=== PATIENT | female | born 1945 | race Caucasian/White ===

== ENCOUNTER 2023-05-10 08:16 | Day surgery (SDC) | payer MEDICARE ==
[2023-05-10] MEDS ORDERED: Depo-Medrol 40 MG/ML IM ONE (08:17)
[2023-05-10] MEDS ORDERED: Sodium Chloride 0.9(Preservative Free) 10 ML IJ ONE (08:17)
[2023-05-10] MEDS ORDERED: DIPRIVAN 200 MG/20 ML IV ONE (10:04)
[2023-05-10] MEDS ORDERED: Lactated Ringers 1,000 ML IV ONE (11:12)
--- NOTE | 2023-05-10 11:28 | XRAY ---
Indication: Caudal ROMA. Intraoperative fluoroscopy provided for 16 seconds. 2 digital spot image submitted for interpretation demonstrates caudal needle tip projecting mid sacrum. Small amount of contrast injected for needle tip placement. Correlate with intraoperative findings/report.
--- NOTE | 2023-05-10 12:13 | XRAY ---
16 seconds of fluoroscopy was used in surgery for a caudal ROMA.
== END 2023-05-10 10:28 | disposition home or self-care (01) ==
LOC: SDC-PAIN 08:16
PROVIDERS: ATTEND Psychiatry & Neurology Pain Medicine
DX: M54.16 Radiculopathy, lumbar region (principal); Z79.899 Other long term (current) drug therapy
CPT/HCPCS: 62323; 72220; 77003; J1030; J2704; Q9966

== ENCOUNTER 2023-09-07 10:44 | Emergency (ER) | payer MEDICARE ==
[2023-09-07 10:52] VITALS: TEMP 97.1
--- NOTE | 2023-09-07 11:00 | ERPHSYRPT ---
- History of Present Illness Time Seen by Provider: 09/07/23 10:55 Source: patient, family Exam Limitations: no limitations Patient Subjective Stated Complaint: PT states "I have been having trouble breathing since the end of june but it got really bad last monday." Triage Nursing Assessment: PT presented alert and oriented X 3, skin wpd. PT ambualtes with an upright steady gait, able to speak in clear ufll setnences. PT coughing, able to speak three to four word sentencse. PT Physician History: This is an obese 78-year-old white female patient Dr. Camargo who has had worsening shortness of breath since the June 2023 but it got much worse yesterday. There is an associated cough as well. Patient does have a history of COPD, gastroesophageal reflux disease, depression and degenerative disc disease. She denies abdominal pain. She denies chest pain. She has not had a fever. The cough is productive with yellowish sputum Timing/Duration: week(s) (Over 8 weeks), worse Activities at Onset: none Severity of Dyspnea-Max: mild (To moderate) Severity of Dyspnea-Current: mild (To moderate) Possible Cause: occasional episodes Modifying Factors: Improves With: coughing Associated Symptoms: cough, wheezing, No chest pain/discomfort Allergies/Adverse Reactions: magnesium [From Cardia] Adverse Reaction (Severe, Verified 09/07/23 10:53) tachycardia potassium chloride [From Cardia] Adverse Reaction (Severe, Verified 09/07/23 10:53) tachycardia sodium chloride [From Cardia] Adverse Reaction (Severe, Verified 09/07/23 10:53) tachycardia Sulfa (Sulfonamide Antibiotics) Adverse Reaction (Intermediate, Verified 09/07/23 10:53) lightheaded Home Medications: Fluticasone/Umeclidin/Vilanter [Trelegy Ellipta 100-62.5-25] 1 unit PO DAILY 09/07/23 [History] PANTOPRAZOLE 40 mg Tablet [Protonix 40MG Tablet] 40 mg PO QAM 09/07/23 [History] Sertraline HCl [Zoloft] 25 mg PO DAILY 09/07/23 [History] Hx Tetanus, Diphtheria Vaccination/Date Given: No Hx Influenza Vaccination/Date Given: No Hx Pneumococcal Vaccination/Date Given: Yes Immunizations Up to Date: No Travel Risk - International Travel Have you traveled outside of the country in past 3 weeks: No - Coronavirus Screening Are you exhibiting any of the following symptoms?: Yes Symptoms: Cough: New Onset, Shortness of Breath, Vomiting/Diarrhea - Vaccine Status Have you recieved a Covid-19 vaccination: Yes Auto Damage Adjuster: Unknown - Vaccination Dates Dates if Unknown: 2021 - Review of Systems Constitutional: No Symptoms Eyes: No Symptoms Ears, Nose, & Throat: No Symptoms Respiratory: Cough, Dyspnea Cardiac: No Symptoms Abdominal/Gastrointestinal: No Symptoms Genitourinary Symptoms: No Symptoms Musculoskeletal: No Symptoms Skin: No Symptoms Neurological: No Symptoms Psychological: No Symptoms Endocrine: No Symptoms Hematologic/Lymphatic: No Symptoms Immunological/Allergic: No Symptoms All Other Systems: Reviewed and Negative - Past Medical History Neurological History: No Pertinent History Cardiac History: No Pertinent History Respiratory History: COPD Endocrine Medical History: No Pertinent History Musculoskeletal History: Degenerative Disk Disease GI Medical History: No Pertinent History History: No Pertinent History Psycho-Social History: Depression Other Medical History: GERD, HX BAÑUELOS'S CYST RIGHT KNEE. SX HX: CHOLECYSTECTOMY AND HYSTERECTOMY - Past Surgical History Past Surgical History: Yes Other Surgical History: roberto. hysterectomy - Social History Smoking Status: Former smoker Exposure to second hand smoke: Yes Drug Use: none Patient Lives Alone: No - Nursing Vital Signs Nursing Vital Signs: Initial Vital Signs Temperature 97.1 F 09/07/23 10:45 Pulse Rate 91 H 09/07/23 10:45 Respiratory Rate 09/07/23 10:45 Blood Pressure 165/88 09/07/23 10:45 O2 Sat by Pulse Oximetry 92 L 09/07/23 10:45 Pain Scale Pain Intensity 0 - Physical Exam General Appearance: mild distress, alert, anxiety, obese Eye Exam: PERRL/EOMI, eyes nml inspection Ears, Nose, Throat Exam: hearing grossly normal, normal ENT inspection, normal pharynx Neck Exam: normal inspection, non-tender, supple, full range of motion Respiratory Exam: normal breath sounds, lungs clear, airway intact, No chest tenderness, No respiratory distress Cardiovascular/Chest Exam: normal heart sounds, regular rate/rhythm Abdominal/Gastrointestinal Exam: soft, normal bowel sounds, No tenderness Rectal Exam: not done Extremity Exam: non-tender, normal range of motion, normal inspection, no calf tenderness, no pedal edema, pelvis stable Neurologic Exam: alert, oriented x 3, cooperative, ventilator specialist II-XII nml as tested, normal mood/affect, nml cerebellar function, nml station & gait, sensation nml Skin Exam: normal color, warm, dry Lymphatic Exam: No adenopathy SpO2 Interpretation: borderline oxygenation SpO2: 93 O2 Delivery: Room Air - Course Nursing assessment & vital signs reviewed: Yes EKG Interpreted by Me: RATE (74), Sinus Rhythm, NORMAL AXIS, NORMAL INTERVALS, NORMAL QRS, NORMAL ST-T, Other (No acute ischemia on today's twelve-lead EKG) Ordered Tests: Active Orders 24 hr Category Date Time Status EKG-ER Only STAT Care 09/07/23 11:00 Active IV Insertion STAT Care 09/07/23 11:00 Active Pulse Oximetry (ED) STAT Care 09/07/23 11:00 Active CHEST 1 VIEW (PORTABLE) Stat Exams 09/07/23 11:01 Completed CHEST WITH CONTRAST [CT] Stat Exams 09/07/23 12:40 Completed BLOOD CULTURE Stat Lab 09/07/23 11:34 Received CBC W DIFF Stat Lab 09/07/23 11:12 Completed CMP Stat Lab 09/07/23 11:12 Completed D-DIMER QUANTITATIVE Stat Lab 09/07/23 11:12 Completed Lactic Acid Stat Lab 09/07/23 11:00 Completed MAGNESIUM Stat Lab 09/07/23 11:12 Completed NT PRO BNPII Stat Lab 09/07/23 11:12 Completed PROTIME WITH INR Stat Lab 09/07/23 11:12 Completed TROPONIN Q4H Lab 09/07/23 11:12 Completed TROPONIN Q4H Lab 09/07/23 15:00 Ordered TROPONIN Q4H Lab 09/07/23 19:00 Ordered Respiratory Therapy Assessment DAILY RT 09/07/23 11:10 Active Medication Summary Discontinued Medications Generic Name Dose Route Start Last Admin Trade Name Freq PRN Reason Stop Dose Admin Albuterol Sulfate 2.5 mg 09/07/23 11:00 09/07/23 11:10 Albuterol Sulfate 2.5 Mg/3 Ml Neb IH 09/07/23 11:01 2.5 mg STAT ONE Administration Albuterol Sulfate Confirm 09/07/23 11:06 Albuterol Sulfate 2.5 Mg/3 Ml Neb Administered 09/07/23 11:07 Dose 2.5 mg IH .STK-MED ONE Methylprednisolone Sodium 0 mg 09/07/23 11:00 09/07/23 11:07 Succinate 125 mg/ Sterile IV 09/07/23 11:01 125 mg Water 2 ml STAT ONE Administration Methylprednisolone Sodium Succinate Confirm 09/07/23 11:06 Methylprednis Sod Succ 125 Mg/2 Ml Vial Administered 09/07/23 11:07 Dose 125 mg .ROUTE .STK-MED ONE Sterile Water Confirm 09/07/23 11:06 Water For Injection,Sterile 10 Ml Vial Administered 09/07/23 11:07 Dose 10 ml IJ .STK-MED ONE Lab/Rad Data: Laboratory Result Diagrams 09/07/23 11:12 09/07/23 11:12 Laboratory Results 09/07/23 09/07/23 09/07/23 Range/Units 11:40 11:12 11:12 WBC (4.0-10.5) x10^3/uL RBC (4.1-5.4) x10^6/uL Hgb (12.0-16.0) g/dL Hct (35-47) % MCV (78-100) fL MCH (26-32) pg MCHC (32-36) g/dL RDW (11.5-14.0) % Plt Count (150-450) x10^3/uL MPV (7.5-11.0) fL Gran % (36.0-66.0) % Immature Gran % (Auto) (0.00-0.4) % Nucleat RBC Rel Count (0.00-0.1) % Eos # (Auto) (0-0.5) x10^3/uL Immature Gran # (Auto) (0.00-0.03) x10^3u/L Absolute Lymphs (auto) (1.0-4.6) x10^3/uL Absolute Monos (auto) (0.0-1.3) x10^3/uL Absolute Nucleated RBC (0.00-0.01) x10^3u/L Lymphocytes % (24.0-44.0) % Monocytes % (0.0-12.0) % Eosinophils % (0.00-5.0) % Basophils % (0.0-0.4) % Absolute Granulocytes (1.4-6.9) x10^3/uL Basophils # (0-0.4) x10^3/uL PT 10.3 (9.4-12.5) SECONDS INR 0.94 (0.8-3.0) D-Dimer 1.12 H* (0.0-0.50) mg/L Sodium 143 (137-145) mmol/L Potassium 3.5 (3.5-5.1) mmol/L Chloride 107 (98-107) mmol/L Carbon Dioxide 27 (22-30) mmol/L Anion Gap 12.6 (5-15) MEQ/L BUN 25 H (7-17) mg/dL Creatinine 0.81 (0.52-1.04) mg/dL Estimated GFR 75.2 ML/MIN Glucose 105 (74-106) mg/dL Lactic Acid (0.4-2.0) Calcium 8.6 (8.4-10.2) mg/dL Magnesium 2.0 (1.6-2.3) mg/dL Total Bilirubin 0.70 (0.2-1.3) mg/dL AST 25 (14-36) U/L ALT 20 (0-35) U/L Alkaline Phosphatase 87 (38-126) U/L Troponin I < 0.012 (0.000-0.034) ng/mL NT-Pro-B Natriuret Pep 363 (<300) pg/mL Serum Total Protein 6.9 (6.3-8.2) g/dL Albumin 4.0 (3.5-5.0) g/dL Influenza Type A Ag POSITIVE A (NEGATIVE) Influenza Type B Ag NEGATIVE (NEGATIVE) RSV (PCR) NEGATIVE (NEGATIVE) SARS-CoV-2 (PCR) NEGATIVE (NEGATIVE) 09/07/23 09/07/23 Range/Units 11:12 11:00 WBC 6.4 (4.0-10.5) x10^3/uL RBC 4.61 (4.1-5.4) x10^6/uL Hgb 13.8 (12.0-16.0) g/dL Hct 43.3 (35-47) % MCV 93.9 (78-100) fL MCH 29.9 (26-32) pg MCHC 31.9 L (32-36) g/dL RDW 12.4 (11.5-14.0) % Plt Count 246 (150-450) x10^3/uL MPV 10.2 (7.5-11.0) fL Gran % 44.7 (36.0-66.0) % Immature Gran % (Auto) 0.2 (0.00-0.4) % Nucleat RBC Rel Count 0.0 (0.00-0.1) % Eos # (Auto) 0.05 (0-0.5) x10^3/uL Immature Gran # (Auto) 0.01 (0.00-0.03) x10^3u/L Absolute Lymphs (auto) 2.83 (1.0-4.6) x10^3/uL Absolute Monos (auto) 0.58 (0.0-1.3) x10^3/uL Absolute Nucleated RBC 0.00 (0.00-0.01) x10^3u/L Lymphocytes % 44.4 H (24.0-44.0) % Monocytes % 9.1 (0.0-12.0) % Eosinophils % 0.8 (0.00-5.0) % Basophils % 0.8 (0.0-0.4) % Absolute Granulocytes 2.85 (1.4-6.9) x10^3/uL Basophils # 0.05 (0-0.4) x10^3/uL PT (9.4-12.5) SECONDS INR (0.8-3.0) D-Dimer (0.0-0.50) mg/L Sodium (137-145) mmol/L Potassium (3.5-5.1) mmol/L Chloride (98-107) mmol/L Carbon Dioxide (22-30) mmol/L Anion Gap (5-15) MEQ/L BUN (7-17) mg/dL Creatinine (0.52-1.04) mg/dL Estimated GFR ML/MIN Glucose (74-106) mg/dL Lactic Acid 1.4 (0.4-2.0) Calcium (8.4-10.2) mg/dL Magnesium (1.6-2.3) mg/dL Total Bilirubin (0.2-1.3) mg/dL AST (14-36) U/L ALT (0-35) U/L Alkaline Phosphatase (38-126) U/L Troponin I (0.000-0.034) ng/mL NT-Pro-B Natriuret Pep (<300) pg/mL Serum Total Protein (6.3-8.2) g/dL Albumin (3.5-5.0) g/dL Influenza Type A Ag (NEGATIVE) Influenza Type B Ag (NEGATIVE) RSV (PCR) (NEGATIVE) SARS-CoV-2 (PCR) (NEGATIVE) - Progress Progress: improved, re-examined Air Movement: good Progress Note: 09/07/23 11:44 This patient's medical issue is 1 of moderate complexity. Level of complexity and the workup performed is based on review of the patient's past medical history, review of the patient's medication list, review the patient drug allergy list, history present illness and physical findings on examination. The workup in this patient includes placement of intravenous line, respiratory therapy consultation evaluation and treatment with nebulizer of albuterol, CBC, CMP, twelve-lead EKG, D-dimer, troponin level, BNP, chest x-ray, flu swabs and infusion of 125 mg intravenous Solu-Medrol. 09/07/23 12:03 Chest x-ray interpreted by the radiologist. I reviewed the impression. The impression states there is demonstration left base opacity either infiltrate or atelectasis or prominent epicardial fat. 09/07/23 14:17 I interpreted the patient's laboratory data results. The patient had an elevated D-dimer and we did order a CT scan of the chest with contrast. Patient also has a positive influenza A result. CT scan of the chest with contrast shows no pulmonary embolus. There is no acute cardiopulmonary processes. There are chronic findings including pulmonary emphysema. Clinically, the patient has had shortness of breath for 2 months but worsened yesterday. Therefore, I will provide her with Tamiflu here in the emergency department and then I will send a prescription for Tamiflu, prednisone and cefdinir to her pharmacy. Blood Culture(s) Obtained: Yes Counseled pt/family regarding: lab results, diagnosis, need for follow-up, rad results Medical Desision Making - Independent Historian Additional History obtained from: Spouse - Diagnostic Testing Diagnostic test were ordered, analyzed, and reviewed by me: Yes Radiological Interpretation: Reviewed by me, Teleradiologist Report - Risk of complications The pt has a mod risk of morbidity or mortality based on: Need for prescription drug management - Departure Departure Disposition: Home Clinical Impression: COPD exacerbation, Influenza A H1N1 infection Condition: Stable Critical Care Time: No Referrals: DALILA CAMARGO MD [Primary Care Provider] - Follow up/PCP as directed Instructions: Chronic Obstructive Pulmonary Disease Additional Instructions: Drink plenty of fluids. Avoid exposure to any type of smoke. Take your medications as prescribed. Follow-up with your primary care provider by phone tomorrow, 09/08/2023, to make arranges for follow-up appointment for further evaluation management. Prescriptions: Cefdinir 300 mg PO BID #14 cap Prednisone 10 mg [Deltasone 10 mg] 10 mg PO TID #12 tablet Oseltamivir 75 mg [Tamiflu 75MG Capsule] 75 mg PO BID #10 cap Albuterol 8 gm Mdi Hfa [Ventolin Hfa MDI] 8 gm IH Q4H #1 unit
[2023-09-07] MEDS ORDERED: Sterile H2O 10 ml IJ ONE (11:06)
[2023-09-07] MEDS ORDERED: PROVENTIL 2.5 MG/3 ML NEB IH ONE (11:06)
[2023-09-07] MEDS ORDERED: solu-MEDROL ONE (11:06)
[2023-09-07] MEDS: solu-MEDROL 125 MG, Sterile H2O 10 ml 2 ML IV ONE (11:07)
[2023-09-07] MEDS: PROVENTIL 2.5 MG/3 ML NEB IH ONE (11:10)
[2023-09-07 11:41] LABS: Absolute Neutrophil Ct (ANC) 2.85 x10^3/uL (1.4-6.9); BASOPHIL % 0.8 % (0.0-0.4); Basophil (Absolute #) 0.05 x10^3/uL (0-0.4); Eosinophil % 0.8 % (0.00-5.0); Eosinophil (Absolute #) 0.05 x10^3/uL (0-0.5); Hematocrit 43.3 % (35-47); Hemoglobin 13.8 g/dL (12.0-16.0); IMMATURE GRAN # 0.01 x10^3u/L (0.00-0.03); IMMATURE GRAN % 0.2 % (0.00-0.4); Lymphocyte (Absolute #) 2.83 x10^3/uL (1.0-4.6); Lymphocytes % 44.4 % (24.0-44.0); Mean Cell Volume 93.9 fL (78-100); Mean Corpuscular Hemoglobin 29.9 pg (26-32); Mean Corpuscular Hgb Concent. 31.9 g/dL (32-36); Mean Platelet Volume 10.2 fL (7.5-11.0); Monocyte (Absolute #) 0.58 x10^3/uL (0.0-1.3); Monocytes % 9.1 % (0.0-12.0); Neutrophil % 44.7 % (36.0-66.0); Platelet Count 246 x10^3/uL (150-450); Red Blood Count 4.61 x10^6/uL (4.1-5.4); Red Cell Distribution Width 12.4 % (11.5-14.0); White Blood Count 6.4 x10^3/uL (4.0-10.5)
[2023-09-07 11:42] VITALS: O2SAT 93
--- NOTE | 2023-09-07 11:50 | XRAY ---
Indication: Short of breath. Comparison: None Portable apical lordotic chest demonstrates left base opacity silhouetting hemidiaphragm and left heart border either infiltrate/atelectasis versus prominent epicardiac fat. Remaining heart and lungs unremarkable. Bony thorax intact with osteopenia and mild degenerative changes.
[2023-09-07 12:10] LABS: ALKALINE PHOSPHATASE 87 U/L (38-126); ANION GAP 12.6 MEQ/L (5-15); BLOOD UREA NITROGEN 25 mg/dL (7-17); CHLORIDE 107 mmol/L (98-107); Calcium 8.6 mg/dL (8.4-10.2); Carbon Dioxide 27 mmol/L (22-30); Creatinine 1 0.81 mg/dL (0.52-1.04); EST GLOMERULAR FILTRATION RATE 75.2 ML/MIN; Glucose 105 mg/dL (74-106); NT PRO BNPII 363 pg/mL (<300); Potassium 3.5 mmol/L (3.5-5.1); SGOT/AST 25 U/L (14-36); SGPT/ALT 20 U/L (0-35); SODIUM 143 mmol/L (137-145); TROPONIN < 0.012 ng/mL (0.000-0.034); Total Protein 6.9 g/dL (6.3-8.2)
[2023-09-07 12:14] LABS: INR 0.94 (0.8-3.0); PROTIME 10.3 SECONDS (9.4-12.5)
[2023-09-07 12:17] LABS: D-DIMER QUANTITATIVE 1.12 mg/L (0.0-0.50)
[2023-09-07 12:18] LABS: INFLUENZA B NEGATIVE (NEGATIVE); RESPIRATORY SYNCTIAL VIRUS NEGATIVE (NEGATIVE); SARS-CoV-2 Xpert Express NEGATIVE (NEGATIVE)
[2023-09-07 12:24] LABS: INFLUENZA A POSITIVE (NEGATIVE)
[2023-09-07 12:55] VITALS: BP 149/61; PULSE 71; RESP 16
--- NOTE | 2023-09-07 13:23 | XRAY ---
Indication: Short of breath. Elevated d-dimer. Multiple contiguous axial images obtained through the chest using 100 cc Isovue 370 contrast and PE protocol. Comparison: None Good opacification of the pulmonary arteries to include the lobar and segmental branches. No pulmonary embolus. Heart not enlarged. Aorta is normal in course and caliber. Tiny mediastinal and bilateral hilar calcified nodes. No pathologic mediastinal/hilar lymphadenopathy. Small hiatal hernia. Lungs demonstrate moderate diffuse pulmonary emphysema and a few tiny bilateral calcified granulomas. No suspicious pulmonary mass/nodule, infiltrate, effusion, or pneumothorax. Bony thorax intact with osteopenia and minimal degenerative changes throughout the spine. Limited upper abdomen demonstrate fatty liver and 2 small right lobe [id number] hepatic cysts. Impression: 1. Negative pulmonary embolus. No acute cardiopulmonary abnormalities. 2. Chronic findings including pulmonary emphysema, hiatal hernia, chronic bony findings, fatty liver, hepatic cysts, and old granulomatous disease.
[2023-09-07] MEDS ORDERED: Tamiflu 75MG Capsule PO ONE (14:30)
[2023-09-07] MEDS: Tamiflu 75MG Capsule PO ONE (14:32)
== END 2023-09-07 14:52 | disposition home or self-care (01) ==
LOC: ED 10:44
DX: J10.1 Influenza due to other identified influenza virus with other respiratory manifestations (principal); J44.1 Chronic obstructive pulmonary disease with (acute) exacerbation; R06.02 Shortness of breath; R05.9 Cough, unspecified; Z79.52 Long term (current) use of systemic steroids; Z79.899 Other long term (current) drug therapy; Z20.828 Contact with and (suspected) exposure to other viral communicable diseases
CPT/HCPCS: 0241U; 36000; 36415; 71045; 71260; 80053; 83605; 83735; 83880; 84484; 85025; 85379; 85610; 87040; 93005; 94640; 94760; 96374; 99284; J2930; J7609; A9270-GY

== ENCOUNTER 2024-01-03 11:11 | Day surgery (SDC) | payer MEDICARE ==
[2024-01-03] MEDS ORDERED: BUPIVACAINE 0.5% VIAL IJ ONE (11:12)
[2024-01-03] MEDS ORDERED: Depo-Medrol 40 MG/ML IM ONE (11:12)
[2024-01-03] MEDS ORDERED: DIPRIVAN 200 MG/20 ML IV ONE (13:51)
[2024-01-03] MEDS ORDERED: BENADRYL 50 MG/ML ONE (14:01)
[2024-01-03] MEDS ORDERED: Lactated Ringers 1,000 ML IV ONE (14:05)
--- NOTE | 2024-01-03 16:26 | XRAY ---
Indication: Bilateral SI joint injection. Intraoperative fluoroscopy provided for 29 seconds. 2 digital spot images submitted for interpretation demonstrates posterior needle tips projecting over the left and right SI joints. Small amount of contrast injected for needle tip placement. Correlate with intraoperative findings/report.
--- NOTE | 2024-01-03 16:51 | XRAY ---
29 seconds of fluoroscopy was used in surgery for a bilateral sacroiliac joint injection.
== END 2024-01-03 14:17 | disposition home or self-care (01) ==
LOC: SDC-PAIN 11:11
PROVIDERS: ATTEND Psychiatry & Neurology Pain Medicine
DX: M46.1 Sacroiliitis, not elsewhere classified (principal)
CPT/HCPCS: 01992; 27096; 72202; 77002; 99100; G0260; J1010; J1200; J2704; Q9966

== ENCOUNTER 2024-01-31 08:23 | Day surgery (SDC) | payer MEDICARE ==
[2024-01-31] MEDS ORDERED: Sodium Chloride 0.9(Preservative Free) 10 ML IJ ONE (08:24)
[2024-01-31] MEDS ORDERED: Depo-Medrol 40 MG/ML IM ONE (08:24)
[2024-01-31] MEDS ORDERED: DIPRIVAN 200 MG/20 ML IV ONE (09:57)
[2024-01-31] MEDS ORDERED: Lactated Ringers 1,000 ML IV ONE (10:53)
--- NOTE | 2024-01-31 11:00 | XRAY ---
Indication: Caudal ROMA. Intraoperative fluoroscopy provided for 22 seconds. 2 digital spot image submitted for interpretation demonstrates caudal needle tip projecting mid sacrum. Small amount of contrast injected for needle tip placement. Correlate with intraoperative findings/report.
--- NOTE | 2024-01-31 11:45 | XRAY ---
22 seconds of fluoroscopy was used in surgery for a caudal ROMA.
== END 2024-01-31 10:31 ==
LOC: SDC-PAIN 08:23
PROVIDERS: ATTEND Psychiatry & Neurology Pain Medicine
DX: M54.16 Radiculopathy, lumbar region (principal)
CPT/HCPCS: 62323; 72220; 77003; J2704; Q9966

== ENCOUNTER 2024-05-29 14:27 | Day surgery (SDC) | payer MEDICARE ==
[2024-05-29] MEDS ORDERED: Depo-Medrol 40 MG/ML IM ONE (14:28)
[2024-05-29] MEDS ORDERED: Sodium Chloride 0.9(Preservative Free) 10 ML IJ ONE (14:28)
[2024-05-29] MEDS ORDERED: DIPRIVAN 200 MG/20 ML IV ONE (16:11)
--- NOTE | 2024-05-29 18:34 | XRAY ---
Indication: Caudal ROMA. Intraoperative fluoroscopy provided for 10 seconds. 3 digital spot images submitted for interpretation demonstrates caudal needle tip projecting mid sacrum. Small amount of contrast injected for needle tip placement. Correlate with intraoperative findings/report.
--- NOTE | 2024-05-30 09:22 | XRAY ---
10 seconds of fluoroscopy was used in surgery for a caudal ROMA.
== END 2024-05-29 16:45 | disposition home or self-care (01) ==
LOC: SDC-PAIN 14:27
PROVIDERS: ATTEND Psychiatry & Neurology Pain Medicine
DX: M54.16 Radiculopathy, lumbar region (principal)
CPT/HCPCS: 62323; 72220; 77003; J2704; Q9966

== ENCOUNTER 2025-04-09 08:12 | Day surgery (SDC) | payer MEDICARE ==
[2025-04-09] MEDS ORDERED: propofoL IV ONE (10:27)
--- NOTE | 2025-04-09 13:05 | XRAY ---
Indication: Caudal ROMA. Intraoperative fluoroscopy provided for 20 seconds. 2 digital spot image submitted for interpretation demonstrates caudal needle tip projecting mid sacrum. Small amount of contrast injected for needle tip placement. Correlate with intraoperative findings/report.
--- NOTE | 2025-04-09 13:07 | XRAY ---
20 seconds of fluoroscopy were used in surgery for a caudal ROMA.
[2025-04-09] MEDS ORDERED: Lactated Ringers 1,000 ML IV ONE (15:16)
== END 2025-04-09 10:55 | disposition home or self-care (01) ==
LOC: SDC-PAIN 08:12
PROVIDERS: ATTEND Psychiatry & Neurology Pain Medicine
DX: M54.16 Radiculopathy, lumbar region (principal)

== ENCOUNTER 2025-05-21 12:09 | Day surgery (SDC) | payer MEDICARE ==
[2025-05-21] MEDS ORDERED: LIDOCAINE HCL 2% 100 MG/5 ML IJ ONE (12:10)
[2025-05-21] MEDS ORDERED: methylPREDNISolone acetate IM ONE (12:10)
[2025-05-21] MEDS ORDERED: Lactated Ringers 1,000 ML IV ONE (13:58)
[2025-05-21] MEDS ORDERED: propofoL IV ONE (14:00)
[2025-05-21] MEDS ORDERED: MORPHINE SULFATE 4 MG INJ ONE (14:30)
--- NOTE | 2025-05-21 16:35 | XRAY ---
Indication: Bilateral L4-S1 MBB. Intraoperative fluoroscopy provided for 11 seconds. Single digital spot image submitted for interpretation demonstrates posterior needle tips projecting over expected left and right L4-S1 nerve roots. Correlate with intraoperative findings/report.
--- NOTE | 2025-05-21 16:43 | XRAY ---
11 seconds of fluoroscopy was used in surgery for a bilateral L4-S1 MBB.
== END 2025-05-21 15:00 | disposition home or self-care (01) ==
LOC: SDC-PAIN 12:09
PROVIDERS: ATTEND Psychiatry & Neurology Pain Medicine
DX: M47.817 Spondylosis without myelopathy or radiculopathy, lumbosacral region (principal)